=== PATIENT | male | born 1990 | race Caucasian/White ===

== ENCOUNTER 2017-03-14 20:42 | Emergency (ER) | payer BC, OTHER ==
[2017-03-14] MEDS ORDERED: ALPRAZolam TAB* 0.5 MG PO ONE (23:06)
[2017-03-14 23:38] LABS: ABS Basophils 0 10^3/ul (0-0.2); ABS Eosinophils 0 10^3/ul (0-0.6); ABS Lymphocytes 1.6 10^3/ul (1.0-4.8); ABS Neutrophils 4.4 10^3/ul (1.5-7.7); ABS Nucleated RBC 0 10^3/ul; Eosinophil % 0.5 % (0-6); Hematocrit 46 % (42-52); Hemoglobin 15.7 g/dl (14.0-18.0); Lymphocyte % 22.8 % (25-47); Mean Corpuscular HGB Conc 34 g/dl (31-36); Mean Corpuscular Hemoglobin 31 pg (27-31); Mean Corpuscular Volume 91 fL (80-94); Mean Platelet Volume 8 um3 (7.4-10.4); Nucleated Red Blood Cells % 0.1; Platelet Count 252 10^3/ul (150-450); Red Blood Count 5.08 10^6/ul (4.0-5.4); Red Cell Distribution Width 14 % (10.5-15); White Blood Count 7.1 10^3/ul (3.5-10.8)
[2017-03-14 23:54] LABS: EGFR Non-African American 86.6 (>60)
[2017-03-15 00:35] VITALS: BP 136/80
--- NOTE | 2017-03-28 19:53 | ED ---
Samira Garcia Edward, scribed for Alina Barron MD on 03/14/17 at 2305 . HPI Chest Pain - HPI Summary HPI Summary: 26 y/o male presents to the ED c/o sub-sternal chest tightness starting two days ago. The CP is intermittent with no radiation. No associated sx. Pt took 4 ASA at home which slightly alleviated sx. No PMHx anxiety. FHx cardiac disease, grandfather of AL recently. - History of Current Complaint Chief Complaint: EDChestWallPain Time Seen by Provider: 03/14/17 22:57 Hx Obtained From: Patient Onset/Duration: Started Days Ago Timing: Intermittent Pain Intensity: 0 Chest Pain Location: Mid Sternal - sub sternal Chest Pain Radiates: No Character: Tightness Aggravating Factor(s): Nothing Alleviating Factor(s): Medication - 4x ASA Associated Signs and Symptoms: Positive: Negative - Allergy/Home Medications Allergies/Adverse Reactions: Allergies Allergy/AdvReac Type Severity Reaction Status Date / Time Iodine Allergy Swelling Verified 03/14/17 22:38 Of Face,Lips,& Throat Penicillins Allergy Swelling Verified 03/14/17 22:38 Of Face,Lips,& Throat Shellfish Allergy Allergy Swelling Verified 03/14/17 22:38 Of Face,Lips,& Throat PMH/Surg Hx/FS Hx/Imm Hx Previously Healthy: No Endocrine/Hematology History: Denies: Hx Diabetes Cardiovascular History: Denies: Hx Myocardial Infarction Psychiatric History: Denies: Hx Anxiety - Surgical History Surgery Procedure, Year, and Place: Hernia repair right side Infectious Disease History: No Infectious Disease History: Denies: History Other Infectious Disease, Traveled Outside the [place] in Last 30 Days - Family History Known Family History: Positive: Cardiac Disease - grandfather - with AL - Social History Alcohol Use: Occasionally Substance Use Type: Reports: Marijuana Smoking Status (MU): Former Smoker Have You Smoked in the Last Year: No Review of Systems Constitutional: Negative Eyes: Negative ENT: Negative Positive: Chest Pain Respiratory: Negative Gastrointestinal: Negative Genitourinary: Negative Musculoskeletal: Negative Skin: Negative Neurological: Negative Psychological: Normal All Other Systems Reviewed And Are Negative: Yes Physical Exam - Summary Physical Exam Summary: VITAL SIGNS: Reviewed. GENERAL: Patient is a well-developed and nourished male who is lying comfortable in the stretcher. Patient is not in any acute respiratory distress. HEAD AND FACE: No signs of trauma. No ecchymosis, hematomas or skull depressions. No sinus tenderness. EYES: PERRLA, EOMI x 2, No injected conjunctiva, no nystagmus. EARS: Hearing grossly intact. Ear canals and tympanic membranes are within normal limits. MOUTH: Oropharynx within normal limits. NECK: Supple, trachea is midline, no adenopathy, no JVD, no carotid bruit, no c- spine tenderness, neck with full ROM. CHEST: Symmetric, no tenderness at palpation LUNGS: Clear to auscultation bilaterally. No wheezing or crackles. CVS: Regular rate and rhythm, S1 and S2 present, no murmurs or gallops appreciated. ABDOMEN: Soft, non-tender. No signs of distention. No rebound no guarding, and no masses palpated. Bowel sounds are normal. EXTREMITIES: FROM in all major joints, no edema, no cyanosis or clubbing. NEURO: Alert and oriented x 3. No acute neurological deficits. Speech is normal and follows commands. SKIN: Dry and warm Triage Information Reviewed: Yes Vital Signs On Initial Exam: Initial Vitals Temp Pulse Resp BP Pulse Ox 97.8 F 75 18 154/87 99 03/14/17 20:45 03/14/17 20:45 03/14/17 20:45 03/14/17 20:45 03/14/17 20:45 Vital Signs Reviewed: Yes Diagnostics - Vital Signs Vital Signs Temp Pulse Resp BP Pulse Ox 03/14/17 22:42 14 03/14/17 22:41 81 18 100 03/14/17 22:38 148/99 03/14/17 20:45 97.8 F 75 18 154/87 99 - Laboratory Result Diagrams: 03/14/17 23:25 03/14/17 23:25 Lab Statement: Any lab studies that have been ordered have been reviewed, and results considered in the medical decision making process. - EKG 1 EKG Interpretation: SR @ 88 BPM. LVH. Non-specific T wave changes in the inferior leads. Re-Evaluation - Re-Evaluation 1 Re-Evaluation Time: 00:18 Comment: Discuss plan of care Chest Pain Course/Dx - Course Assessment/Plan: 26 y/o male presents to the ED c/o sub-sternal chest tightness starting two days ago. EKG shows SR @ 88 BPM. LVH. Non-specific T wave changes in the inferior leads. Test results are without any significant abnormalities. Pt will be d/c home with f/u with PCP. - Diagnoses Provider Diagnoses: Atypical chest pain, Anxiety Discharge - Discharge Plan Condition: Stable Disposition: HOME Patient Education Materials: Chest Pain (ED), Anxiety (ED) Referrals: [facility] [place] PHYSICIAN REFERRAL [Outside] - 4 Days (PLEASE F/U IN 3-5 DAYS) Additional Instructions: PLEASE RETURN TO THE ED FOR THE RETURN OR WORSENING OF SYMPTOMS The documentation as recorded by the Samira selby Edward accurately reflects the service I personally performed and the decisions made by , Alina Barron MD.
== END 2017-03-15 00:35 | disposition home or self-care (01) ==
LOC: ED 20:42
DX: R07.89 Other chest pain (principal); F41.9 Anxiety disorder, unspecified; Z87.891 Personal history of nicotine dependence
CPT/HCPCS: 36415; 80053; 82550; 84484; 85025; 93005; 99282; A9270-GY

== ENCOUNTER 2017-03-15 15:34 | Emergency (ER) | payer BC ==
--- NOTE | 2017-03-15 18:28 | ED ---
Progress - Progress Note Progress Note: Greeting note: 4-5 days substernal CP, hurts to take deep breath, radiating into L shoulder. Also vesicular rash on l foreheads with tingling, likely shingles. Just came from
[2017-03-15 19:26] LABS: Hematocrit 49 % (42-52); Hemoglobin 16.8 g/dl (14.0-18.0); Mean Corpuscular HGB Conc 34 g/dl (31-36); Mean Corpuscular Hemoglobin 31 pg (27-31); Mean Corpuscular Volume 91 fL (80-94); Mean Platelet Volume 8 um3 (7.4-10.4); Platelet Count 259 10^3/ul (150-450); Red Blood Count 5.42 10^6/ul (4.0-5.4); Red Cell Distribution Width 13 % (10.5-15); White Blood Count 8.1 10^3/ul (3.5-10.8)
--- NOTE | 2017-03-15 19:38 | RAD ---
Indication: Shortness of breath, chest pain. 2 views of the chest including dual energy PA views demonstrates no mediastinal shift. Heart is of normal size and configuration. Lung monroe appear clear. IMPRESSION: No active cardiopulmonary disease is noted.
[2017-03-15 19:42] LABS: EGFR Non-African American 80.3 (>60)
[2017-03-15] MEDS ORDERED: Ketorolac INJ* 60 MG/2 ML VIAL IM ONE (20:21)
[2017-03-15] MEDS ORDERED: ValACYclovir (*) 1 GM TAB PO ONE (20:22)
--- NOTE | 2017-03-15 20:50 | ED ---
Stephanie Garcia Julia, scribed for Alina Barron MD on 03/15/17 at 2017 . HPI Chest Pain - HPI Summary HPI Summary: This patient is a 26 year old M presenting to [facility] with a chief complaint of midsternal and chest tightness that radiates into L shoulder for the past3 - 4 days . The patient rates the pain 6/10 in severity Patient reports painful L forehead rash with surrounding numbness. He reports no other skin lesions. Patient was seen in the ED yesterday for similar symptoms. - History of Current Complaint Chief Complaint: EDChestWallPain Time Seen by Provider: 03/15/17 20:07 Hx Obtained From: Patient Onset/Duration: Started Days Ago Timing: Constant, Lasting Days Pain Intensity: 6 Pain Scale Used: 0-10 Numeric Chest Pain Location: Mid Sternal, Left Lateral Chest Pain Radiates To:: Shoulder - L Character: Pressure/Squeezing Associated Signs and Symptoms: Positive: Other: - skin lesion Related History: Similar Episode/Dx as: - seen in ED for similar symtoms yesterday - Allergy/Home Medications Allergies/Adverse Reactions: Allergies Allergy/AdvReac Type Severity Reaction Status Date / Time Iodine Allergy Swelling Verified 03/14/17 22:38 Of Face,Lips,& Throat Penicillins Allergy Swelling Verified 03/14/17 22:38 Of Face,Lips,& Throat Shellfish Allergy Allergy Swelling Verified 03/14/17 22:38 Of Face,Lips,& Throat PMH/Surg Hx/FS Hx/Imm Hx Opthamlomology History: Denies: Hx Legally Blind EENT History: Denies: Hx Deafness - Surgical History Surgery Procedure, Year, and Place: Hernia repair right side Infectious Disease History: No Infectious Disease History: Denies: History Other Infectious Disease, Traveled Outside the [place] in Last 30 Days - Family History Known Family History: Positive: Unknown - Social History Occupation: Employed Full-time - at desk Alcohol Use: Occasionally Substance Use Type: Reports: Marijuana Smoking Status (MU): Former Smoker Have You Smoked in the Last Year: No Review of Systems Positive: Chest Pain Positive: Rash - L forehead All Other Systems Reviewed And Are Negative: Yes Physical Exam Triage Information Reviewed: Yes Vital Signs On Initial Exam: Initial Vitals Temp Pulse Resp BP Pulse Ox 98.9 F 80 18 142/97 97 03/15/17 15:38 03/15/17 15:38 03/15/17 15:38 03/15/17 15:38 03/15/17 15:38 Vital Signs Reviewed: Yes Skin: Positive: Other - vesicular lesion to L forehead, tender to palpation, numbness around lesion Head/Face: Positive: Normal Head/Face Inspection Eyes: Positive: Normal ENT: Positive: Normal ENT inspection Respiratory/Lung Sounds: Positive: Clear to Auscultation Cardiovascular: Positive: Normal Musculoskeletal: Positive: Normal Neurological: Positive: Normal Psychiatric: Positive: Normal Diagnostics - Vital Signs Vital Signs Temp Pulse Resp BP Pulse Ox 03/15/17 17:30 98.4 F 85 18 156/82 100 03/15/17 15:38 98.9 F 80 18 142/97 97 - Laboratory Lab Results: Lab Results 03/15/17 03/15/17 03/15/17 Range/Units 19:17 19:17 19:17 WBC 8.1 (3.5-10.8) 10^3/ul RBC 5.42 H (4.0-5.4) 10^6/ul Hgb 16.8 (14.0-18.0) g/dl Hct 49 (42-52) % MCV 91 (80-94) fL MCH 31 (27-31) pg MCHC 34 (31-36) g/dl RDW 13 (10.5-15) % Plt Count 259 (150-450) 10^3/ul MPV 8 (7.4-10.4) um3 D-Dimer, Quantitative < 200 (Less Than 230) ng/mL Sodium 140 (133-145) mmol/L Potassium 3.9 (3.5-5.0) mmol/L Chloride 105 (101-111) mmol/L Carbon Dioxide 25 (22-32) mmol/L Anion Gap 10 (2-11) mmol/L BUN 20 (6-24) mg/dL Creatinine 1.10 (0.67-1.17) mg/dL Est GFR ( Amer) 103.3 (>60) Est GFR (Non-Af Amer) 80.3 (>60) BUN/Creatinine Ratio 18.2 (8-20) Glucose 94 (70-100) mg/dL Calcium 10.0 (8.6-10.3) mg/dL Total Bilirubin 1.00 (0.2-1.0) mg/dL AST 15 (13-39) U/L ALT 30 (7-52) U/L Alkaline Phosphatase 58 (34-104) U/L Troponin I 0.00 (<0.04) ng/mL Total Protein 8.4 (6.4-8.9) g/dL Albumin 5.2 (3.2-5.2) g/dL Globulin 3.2 (2-4) g/dL Albumin/Globulin Ratio 1.6 (1-3) Result Diagrams: 03/15/17 19:17 03/15/17 19:17 Lab Statement: Any lab studies that have been ordered have been reviewed, and results considered in the medical decision making process. - EKG 15:55 Cardiac Rate: NL - at 70 bpm EKG Rhythm: Sinus Rhythm EKG Interpretation: Nml axis. Nml interval.No specific T wave changes in the inferior leads Chest Pain Course/Dx - Course Course Of Treatment: Patient presents with midsternal chest tightness for the past 3-4 days and a lesion to his L forehead. He denies lesions elsewhere He was seen yesterday for the same symptoms. EKG reveals no acute concern. Patient is given Toradol for his chest pain. He will be treated with an antiviral for the lesion; it could possibly be shingles. I recomended to the patient that he should try to relax when he is having these symptoms. - Diagnoses Provider Diagnoses: Chest wall pain, Shingles Discharge - Discharge Plan Condition: Stable Disposition: HOME Patient Education Materials: Chest Wall Pain (ED), Shingles (ED) Referrals: No Primary Care Phys,NOPCP [Primary Care Provider] - Additional Instructions: RETURN TO THE EMERGENCY DEPARTMENT FOR CHANGING OR WORSENING SYMPTOMS. The documentation as recorded by the Stephanie selby Julia accurately reflects the service I personally performed and the decisions made by me, Alina Barron MD.
[2017-03-15 20:53] VITALS: BP 151/80
== END 2017-03-15 20:52 | disposition home or self-care (01) ==
LOC: ED 15:34
DX: R21 Rash and other nonspecific skin eruption (principal); R07.89 Other chest pain; Z87.891 Personal history of nicotine dependence
CPT/HCPCS: 36415; 71046; 80053; 84484; 85027; 85379; 93005; 96372; 99283; A9270-GY; J1885